=== PATIENT | female | born 1985 | race Two or more races ===

== ENCOUNTER 2020-02-16 21:28 | Emergency (ER) | payer MEDICAID, OTHER ==
[~2020-02-16] VITALS: Ht 162.6 cm; Wt 63.5 kg
[2020-02-16 22:33] LABS: Basophils # (auto) 0.1 10 ^3/uL (0-0.2); Basophils % (auto) 1.1 % (0.0-2.0); Eosinophils # (auto) 0.1 10 ^3/uL (0-0.8); Eosinophils % (auto) 1.3 % (0.0-7.0); Hematocrit 42.2 % (36.0-46.0); Hemoglobin 14.3 g/dL (12.2-16.2); Lymphocytes # (auto) 2.4 10 ^3/uL (0.4-5.4); Lymphocytes % (auto) 26.4 % (10.0-50.0); Mean Corpuscular Hemoglobin 31.7 pg (28.0-32.0); Mean Corpuscular Hgb Conc. 33.9 g/dL (32.0-36.0); Mean Corpuscular Volume 93.3 fL (80.0-100.0); Monocytes # (auto) 0.7 10 ^3/uL (0-1.3); Monocytes % (auto) 8.2 % (0.0-12.0); Neutrophils # (auto) 5.7 10 ^3/uL (1.6-8.6); Platelet Count (auto) 214 10^3/uL (140-450); Red Blood Cells 4.53 10^6/uL (4.0-5.20); Red Cell Distribution Width 12.7 % (11.8-14.3)
[2020-02-16 22:43] VITALS: BP 103/69
[2020-02-16 22:55] LABS: Albumin 4.1 g/dL (3.4-5.0); BUN/Creatinine Ratio 26.2; Calcium 8.7 mg/dL (8.5-10.1); Potassium 3.8 mmol/L (3.5-5.1)
[2020-02-16 22:58] LABS: Bilirubin, Total 0.9 mg/dL (0.2-1.0); Total Protein 7.6 g/dL (6.4-8.2)
[2020-02-16 23:11] LABS: Urine Bacteria FEW /hpf (None Seen); Urine Blood Negative /uL (Negative); Urine Mucus FEW (None Seen); Urine Specific Gravity 1.031 (1.001-1.035); Urine WBC 1 /hpf (0 - 5)
== END 2020-02-17 02:07 | disposition home or self-care (01) ==
LOC: ER 21:31
DX: O23.41 Unspecified infection of urinary tract in pregnancy, first trimester (principal); Z3A.01 Less than 8 weeks gestation of pregnancy
CPT/HCPCS: 36415; 76801; 76817; 80053; 81001; 84702; 85025

== ENCOUNTER 2020-08-18 13:14 | Observation (INO) | payer MEDICAID ==
[2020-08-18] MEDS ORDERED: PREN-96 PO (15:13)
== END 2020-08-18 15:25 | disposition home or self-care (01) ==
LOC: LDRP 13:14
PROVIDERS: ADMIT Obstetrics & Gynecology; ATTEND Obstetrics & Gynecology
DX: O24.419 Gestational diabetes mellitus in pregnancy, unspecified control (principal); Z3A.32 32 weeks gestation of pregnancy
CPT/HCPCS: 59025; 76818; 81002; 82962; G0378

== ENCOUNTER 2020-08-25 15:10 | Observation (INO) | payer MEDICAID ==
[~2020-08-25 15:10] MED LIST: PREN-96 PO
== END 2020-08-25 16:49 | disposition home or self-care (01) ==
LOC: LDRP 15:10
PROVIDERS: ADMIT Obstetrics & Gynecology; ATTEND Obstetrics & Gynecology
DX: O24.419 Gestational diabetes mellitus in pregnancy, unspecified control (principal); Z3A.33 33 weeks gestation of pregnancy
CPT/HCPCS: 59025; 81002; 82948; 82962; G0378

== ENCOUNTER 2020-09-01 15:03 | Observation (INO) | payer MEDICAID | END 2020-09-01 16:52 | disposition home or self-care (01) | LOC: LDRP 15:03 | PROVIDERS: ADMIT Obstetrics & Gynecology; ATTEND Obstetrics & Gynecology | DX: O24.410 Gestational diabetes mellitus in pregnancy, diet controlled (principal); Z3A.34 34 weeks gestation of pregnancy | CPT/HCPCS: 59025; 76818; 81002; 82948; 82962; G0378 ==

== ENCOUNTER 2020-09-08 11:08 | Observation (INO) | payer MEDICAID | END 2020-09-08 12:24 | disposition home or self-care (01) | LOC: LDRP 11:08 | PROVIDERS: ADMIT Obstetrics & Gynecology; ATTEND Obstetrics & Gynecology | DX: O24.419 Gestational diabetes mellitus in pregnancy, unspecified control (principal); Z3A.35 35 weeks gestation of pregnancy | CPT/HCPCS: 59025; 76818; 81002; 82948; 82962; G0378 ==

== ENCOUNTER 2020-09-09 17:00 | Observation (INO) | payer MEDICAID ==
[2020-09-09] MEDS: TERBUTALINE SULFATE 1 MG/ML 1ML VIAL SC SCH ×2 (18:11→20:21)
[2020-09-09] MEDS ORDERED: NIFEdipine 10 MG CAP PO ONE (19:00)
[2020-09-09] MEDS ORDERED: NIFEdipine 10 MG CAP ONE ×2 (19:00→19:01)
[2020-09-11] MEDS ORDERED: NIF10C GT (11:57)
== END 2020-09-09 21:07 | disposition home or self-care (01) ==
LOC: UNDOADMOB 17:00 → LDRP 17:00 → UNDODISOB 21:07
PROVIDERS: ADMIT Specialist; ATTEND Specialist
DX: O42.913 Preterm premature rupture of membranes, unspecified as to length of time between rupture and onset of labor, third trimester (principal); O62.9 Abnormality of forces of labor, unspecified; O26.893 Other specified pregnancy related conditions, third trimester; R11.10 Vomiting, unspecified; Z3A.35 35 weeks gestation of pregnancy; Z98.891 History of uterine scar from previous surgery; Z79.899 Other long term (current) drug therapy
CPT/HCPCS: 59025; 81002; 82948; 82962; 84112; 96372; G0378; J3105; Q0114

== ENCOUNTER 2020-09-16 09:06 | Observation (INO) | payer MEDICAID ==
[~2020-09-16 09:06] MED LIST changes: +NIF10C GT
[2020-09-16] MEDS ORDERED: NIF10C PO (10:34)
== END 2020-09-16 10:44 | disposition home or self-care (01) ==
LOC: LDRP 09:06
PROVIDERS: ADMIT Obstetrics & Gynecology; ATTEND Obstetrics & Gynecology
DX: O24.410 Gestational diabetes mellitus in pregnancy, diet controlled (principal); Z3A.36 36 weeks gestation of pregnancy
CPT/HCPCS: 59025; 76818; 81002; 82948; 82962; G0378

== ENCOUNTER 2020-09-23 11:26 | Observation (INO) | payer MEDICAID ==
[~2020-09-23 11:26] MED LIST changes: -NIF10C GT; +NIF10C PO
== END 2020-09-23 12:29 | disposition home or self-care (01) ==
LOC: LDRP 11:26
PROVIDERS: ADMIT Specialist; ATTEND Specialist
DX: O24.410 Gestational diabetes mellitus in pregnancy, diet controlled (principal); O34.219 Maternal care for unspecified type scar from previous cesarean delivery; O62.9 Abnormality of forces of labor, unspecified; Z3A.37 37 weeks gestation of pregnancy
CPT/HCPCS: 59025; 76818; 81002; 82948; 82962; G0378

== ENCOUNTER 2020-09-28 09:16 | Observation (INO) | payer MEDICAID ==
[~2020-09-28] VITALS: Ht 162.6 cm; Wt 72.6 kg
[~2020-09-28 09:16] MED LIST changes: -NIF10C PO
[2020-10-08] MEDS ORDERED: IBUP800T27 PO (09:34)
== END 2020-10-02 14:38 | disposition home or self-care (01) ==
LOC: LDRP 09:16 → UNDOADMOB 09:16 → LDRP 10-02 13:10
PROVIDERS: ADMIT Obstetrics & Gynecology; ATTEND Obstetrics & Gynecology
DX: O24.419 Gestational diabetes mellitus in pregnancy, unspecified control (principal); O34.219 Maternal care for unspecified type scar from previous cesarean delivery; Z3A.38 38 weeks gestation of pregnancy
CPT/HCPCS: 59025; 76818; 81002; 82962; G0378

== ENCOUNTER 2020-10-02 13:10 | Observation (INO) | payer MEDICAID | END 2020-10-02 14:38 | disposition home or self-care (01) | LOC: LDRP 13:10 | PROVIDERS: ADMIT Obstetrics & Gynecology; ATTEND Obstetrics & Gynecology | DX: O24.419 Gestational diabetes mellitus in pregnancy, unspecified control (principal); Z20.828 Contact with and (suspected) exposure to other viral communicable diseases; Z3A.38 38 weeks gestation of pregnancy | CPT/HCPCS: 59025; 76818; 81002; 82948; 82962; G0378; U0003 ==

== ENCOUNTER 2020-10-05 04:02 | Inpatient (IN) | payer MEDICAID ==
[2020-10-05] VITALS (19 sets, daily range): BP systolic 104–129; BP diastolic 57–74
[~2020-10-05] VITALS: Ht 162.6 cm; Wt 79.4 kg
[2020-10-05] MEDS ORDERED: LACTATED RINGER'S 1,000 ML IV ONE (04:15)
[2020-10-05] MEDS ORDERED: ceFAZolin 1GM/50ML 50 ML IV ONE (04:15)
[2020-10-05 04:46] LABS: Hematocrit 38.6 % (36.0-46.0); Hemoglobin 13.1 g/dL (12.2-16.2); Mean Corpuscular Hemoglobin 31.7 pg (28.0-32.0); Mean Corpuscular Hgb Conc. 33.8 g/dL (32.0-36.0); Mean Corpuscular Volume 93.6 fL (80.0-100.0); Platelet Count (auto) 197 10^3/uL (140-450); Red Blood Cells 4.13 10^6/uL (4.0-5.20); Red Cell Distribution Width 14.4 % (11.8-14.3); White Blood Cell 12.2 10^3/uL (4.4-10.8)
[2020-10-05 04:53] LABS: Urine Bacteria FEW /hpf (None Seen); Urine Blood Negative /uL (Negative); Urine Mucus FEW (None Seen); Urine Specific Gravity 1.029 (1.001-1.035); Urine WBC 2 /hpf (0 - 5)
[2020-10-05 04:54] LABS: Basophils % (manual) 0 (0.0-2.0); Blast Cells 0; Eosinophils % (manual) 0 (0-7); Metamyelocytes % 0; Promyelocytes % 0; Reactive Lymphocytes 0
[2020-10-05 05:01] LABS: INR 0.94 (0.9-1.15); Partial Thromboplastin Time 25.1 sec (23.0-31.2)
[2020-10-05 05:06] LABS: Potassium 3.7 mmol/L (3.5-5.1)
[2020-10-05 05:09] LABS: BUN/Creatinine Ratio 19.1; Bilirubin, Total 0.8 mg/dL (0.2-1.0); Total Protein 7.4 g/dL (6.4-8.2)
[2020-10-05 05:25] LABS: Band Neutrophils % (manual) 10; Lymphocytes % (manual) 20 (10.0-50.0); Monocytes % (manual) 3 (0-12); Myelocytes % 1
[2020-10-05] MEDS ORDERED: TETRACAINE 1% INJ 2 ML VIAL IJ ONE (07:10)
[2020-10-05] MEDS ORDERED: ONDANSETRON HCL 4 MG/2 ML VIAL IV PRN ×3 (07:45→09:15)
[2020-10-05] MEDS ORDERED: LACT. RINGERS/OXYTOCIN 20UNITS 1,000 ML IV ONE (07:45)
[2020-10-05] MEDS ORDERED: ceFAZolin 1GM/50ML 50 ML IV SCH (07:45)
[2020-10-05] MEDS ORDERED: KETOROLAC TROMETH 30 MG/ML 1ML VIAL IV PRN (09:15)
[2020-10-05] MEDS ORDERED: LABETALOL HCL 5 MG/ML 4ML SYRINGE IV PRN (09:15)
[2020-10-05] MEDS ORDERED: NALBUPHINE HCL 10 MG/1ml INJECTION SUBCUT ONE (09:15)
[2020-10-05] MEDS ORDERED: DexAMETHasone SOD PHOS 10MG/1ML VIAL INJ IV PRN (09:15)
[2020-10-05] MEDS ORDERED: NALOXONE HCL 0.4 MG/ML VIAL IV PRN (09:15)
[2020-10-05] MEDS ORDERED: HYDROmorphone HCL 2 MG/ML VL IV PRN (09:15)
[2020-10-05] MEDS ORDERED: ePHEDrine SULFATE 50 MG/ML AMP IV PRN (09:15)
[2020-10-05] MEDS ORDERED: MIDAZOLAM HCL 1MG/1ML-2 ML VIAL IV PRN (09:15)
[2020-10-05] MEDS: diphenhdrAMINE HCL 50 MG/1 ML VL IV PRN ×2 (12:01→18:34)
[2020-10-05] MEDS: LACTATED RINGER'S 1,000 ML IV SCH (12:02)
[2020-10-05] MEDS ORDERED: HYDR-4833 PO (12:34)
[2020-10-05] MEDS: ceFAZolin 1GM/50ML 50 ML IV SCH ×2 (15:20→23:05)
[2020-10-05 19:59] LABS: Basophils # (auto) 0.1 10 ^3/uL (0-0.2); Basophils % (auto) 0.9 % (0.0-2.0); Eosinophils # (auto) 0.1 10 ^3/uL (0-0.8); Eosinophils % (auto) 0.4 % (0.0-7.0); Hematocrit 35.1 % (36.0-46.0); Hemoglobin 12.1 g/dL (12.2-16.2); Lymphocytes # (auto) 0.8 10 ^3/uL (0.4-5.4); Lymphocytes % (auto) 7.2 % (10.0-50.0); Mean Corpuscular Hgb Conc. 34.5 g/dL (32.0-36.0); Monocytes # (auto) 0.7 10 ^3/uL (0-1.3); Monocytes % (auto) 6.6 % (0.0-12.0); Neutrophils # (auto) 9.5 10 ^3/uL (1.6-8.6); Neutrophils % (auto) 84.9 % (37.0-80.0); Nucleated Red Blood Cells % 0.1 %; Platelet Count (auto) 155 10^3/uL (140-450); Red Blood Cells 3.78 10^6/uL (4.0-5.20); White Blood Cell 11.2 10^3/uL (4.4-10.8)
[2020-10-05] MEDS: MORPHINE SULFATE 4 MG/ML SYR/VIAL IV PRN (21:06)
[2020-10-05] MEDS ORDERED: ACETAMINOPHEN IV 1000 MG/100ML (10MG/ML) IV ONE (23:15)
[2020-10-06] VITALS (12 sets, daily range): BP systolic 101–130; BP diastolic 60–78
[2020-10-06] MEDS: LACTATED RINGER'S 1,000 ML IV SCH (01:30)
[2020-10-06] MEDS: MORPHINE SULFATE 4 MG/ML SYR/VIAL IV PRN (03:43)
[2020-10-06] MEDS ORDERED: BISACODYL 10 MG RECT SUPP PR PRN (07:00)
[2020-10-06] MEDS ORDERED: HYDROcodone-ACET 5/325MG TAB PO PRN (07:00)
[2020-10-06 07:07] LABS: RPR Non Reactive (Non Reactive)
[2020-10-06] MEDS: ceFAZolin 1GM/50ML 50 ML IV SCH (07:16)
[2020-10-06 08:04] LABS: Basophils # (auto) 0.1 10 ^3/uL (0-0.2); Basophils % (auto) 0.7 % (0.0-2.0); Eosinophils # (auto) 0 10 ^3/uL (0-0.8); Eosinophils % (auto) 0.1 % (0.0-7.0); Hematocrit 36.2 % (36.0-46.0); Hemoglobin 12.6 g/dL (12.2-16.2); Lymphocytes # (auto) 0.3 10 ^3/uL (0.4-5.4); Lymphocytes % (auto) 3.1 % (10.0-50.0); Mean Corpuscular Hemoglobin 32.4 pg (28.0-32.0); Mean Corpuscular Hgb Conc. 34.8 g/dL (32.0-36.0); Mean Corpuscular Volume 93.2 fL (80.0-100.0); Monocytes # (auto) 0.5 10 ^3/uL (0-1.3); Monocytes % (auto) 4.8 % (0.0-12.0); Neutrophils # (auto) 9.7 10 ^3/uL (1.6-8.6); Neutrophils % (auto) 91.3 % (37.0-80.0); Nucleated Red Blood Cells % 0.1 %; Platelet Count (auto) 143 10^3/uL (140-450); Red Blood Cells 3.89 10^6/uL (4.0-5.20); Red Cell Distribution Width 14.4 % (11.8-14.3); White Blood Cell 10.6 10^3/uL (4.4-10.8)
[2020-10-06] MEDS: IBUPROFEN 800 MG TAB PO PRN ×2 (09:22→18:40)
[2020-10-06] MEDS: DOCUSATE CALCIUM 240 MG CAP PO SCH (10:00)
[2020-10-06] MEDS: DOCUSATE SOD 100 MG CAP PO SCH ×2 (10:00→22:02)
[2020-10-06] MEDS: SIMETHICONE 80 MG CHEWABLE TABLET PO SCH ×3 (14:36→22:02)
[2020-10-06] MEDS: HYDROcodone-ACET 5/325MG TAB PO PRN ×2 (16:16→22:03)
[2020-10-07 03:00] VITALS: BP 99/62
[2020-10-07] MEDS: IBUPROFEN 800 MG TAB PO PRN ×3 (04:40→22:14)
[2020-10-07] MEDS: SIMETHICONE 80 MG CHEWABLE TABLET PO SCH ×4 (06:49→22:13)
[2020-10-07 07:30] VITALS: BP 107/67
[2020-10-07] MEDS: HYDROcodone-ACET 5/325MG TAB PO PRN ×2 (08:32→19:46)
[2020-10-07] MEDS: DOCUSATE CALCIUM 240 MG CAP PO SCH (09:50)
[2020-10-07] MEDS: DOCUSATE SOD 100 MG CAP PO SCH ×2 (09:50→22:14)
[2020-10-07 11:30] VITALS: BP 92/62
[2020-10-07 15:30] VITALS: BP 104/73
[2020-10-07 19:29] VITALS: BP 109/71
[2020-10-07 23:00] VITALS: BP 119/73
[2020-10-08 02:44] VITALS: BP 107/62
[2020-10-08] MEDS: HYDROcodone-ACET 5/325MG TAB PO PRN (02:53)
[2020-10-08] MEDS: SIMETHICONE 80 MG CHEWABLE TABLET PO SCH (05:49)
[2020-10-08 07:30] VITALS: BP 106/67
[2020-10-08] MEDS: IBUPROFEN 800 MG TAB PO PRN (08:58)
[2020-10-08] MEDS ORDERED: DOCU-94 PO (09:33)
[2020-10-08] MEDS ORDERED: IBUP800T24 PO (09:34)
[2020-10-08] MEDS: DOCUSATE SOD 100 MG CAP PO SCH (09:55)
[2020-10-08] MEDS: DOCUSATE CALCIUM 240 MG CAP PO SCH (09:55)
[2020-10-08 10:30] VITALS: BP 123/77
== END 2020-10-08 11:10 | disposition home or self-care (01) | DRG 540 ==
LOC: LDRP 04:02
PROVIDERS: ADMIT Specialist; ATTEND Specialist
PROC: 10D00Z1 Extraction of Products of Conception, Low, Open Approach (ICD-10-PCS; principal; 2020-10-05 07:34)
DX: O24.429 Gestational diabetes mellitus in childbirth, unspecified control (principal); O99.214 Obesity complicating childbirth; E66.9 Obesity, unspecified; O69.81X0 Labor and delivery complicated by cord around neck, without compression, not applicable or unspecified; O34.211 Maternal care for low transverse scar from previous cesarean delivery; Z37.0 Single live birth; Z3A.38 38 weeks gestation of pregnancy
CPT/HCPCS: 36415; 59025; 80053; 81001; 81002; 82948; 85007; 85025; 85027; 85610; 85730; 86592; 86850; 86900; 86901; 94762; 96360; 96361; 96374; 96375; G0378; J0131; J0690; J2250; J2590

== ENCOUNTER 2021-06-05 21:45 | Emergency (ER) | payer MEDICAID ==
[~2021-06-05] VITALS: Ht 160 cm; Wt 68.0 kg
[~2021-06-05 21:45] MED LIST changes: +DOCU-94 PO; +HYDR-4833 PO; +IBUP800T27 PO
[2021-06-05] MEDS ORDERED: HALOPERIDOL LACTATE 5 MG/ML INJ VIAL ONE (21:59)
[2021-06-05] MEDS ORDERED: LORazepam 2MG/ML-1ML VIAL IM ONE (22:00)
[2021-06-05] MEDS ORDERED: HALOPERIDOL LACTATE 5 MG/ML INJ VIAL IM ONE (22:00)
[2021-06-06 07:03] VITALS: BP 102/60
[2021-06-06 08:37] LABS: Basophils # (auto) 0 10 ^3/uL (0-0.2); Basophils % (auto) 0.3 % (0.0-2.0); Eosinophils # (auto) 0 10 ^3/uL (0-0.8); Eosinophils % (auto) 0.4 % (0.0-7.0); Hematocrit 40.4 % (36.0-46.0); Hemoglobin 13.7 g/dL (12.2-16.2); Lymphocytes # (auto) 0.6 10 ^3/uL (0.4-5.4); Lymphocytes % (auto) 10.8 % (10.0-50.0); Mean Corpuscular Hemoglobin 30.6 pg (28.0-32.0); Mean Corpuscular Hgb Conc. 33.9 g/dL (32.0-36.0); Mean Corpuscular Volume 90.4 fL (80.0-100.0); Monocytes # (auto) 0.6 10 ^3/uL (0-1.3); Monocytes % (auto) 11.3 % (0.0-12.0); Neutrophils % (auto) 77.2 % (37.0-80.0); Red Blood Cells 4.47 10^6/uL (4.0-5.20); Red Cell Distribution Width 13.4 % (11.8-14.3); White Blood Cell 5.2 10^3/uL (4.4-10.8)
[2021-06-06 08:56] LABS: Albumin 3.4 g/dL (3.4-5.0); Calcium 8.5 mg/dL (8.5-10.1); Magnesium 2.1 mg/dL (1.6-2.6); Potassium 3.8 mmol/L (3.5-5.1)
[2021-06-06 08:59] LABS: Bilirubin, Total 0.5 mg/dL (0.2-1.0); Total Protein 7.1 g/dL (6.4-8.2)
== END 2021-06-06 12:47 | disposition left against medical advice (07) ==
LOC: ER 21:48
DX: F41.9 Anxiety disorder, unspecified (principal); Z79.1 Long term (current) use of non-steroidal anti-inflammatories (NSAID); Z79.899 Other long term (current) drug therapy
CPT/HCPCS: 36415; 80053; 83690; 83735; 84443; 85025; 93005; 96372; 99285; J1630

== ENCOUNTER 2022-01-08 21:01 | Emergency (ER) | payer MEDICAID ==
[~2022-01-08] VITALS: Ht 162.6 cm; Wt 68.9 kg
[2022-01-08 21:56] VITALS: BP 105/70
[2022-01-09] MEDS ORDERED: NITR-87 PO ×3 (14:00→14:48)
[2022-01-10] MEDS ORDERED: ONDA-144 PO (22:05)
[2022-01-10] MEDS ORDERED: TRAM-297 PO (22:05)
[2022-01-10] MEDS ORDERED: PANT40TA2 PO (22:05)
== END 2022-01-09 02:11 | disposition left against medical advice (07) ==
LOC: ER 21:01
DX: R11.2 Nausea with vomiting, unspecified (principal); R19.7 Diarrhea, unspecified; Z53.21 Procedure and treatment not carried out due to patient leaving prior to being seen by health care provider
CPT/HCPCS: 93005

== ENCOUNTER 2022-01-09 11:28 | Emergency (ER) | payer MEDICAID ==
[~2022-01-09] VITALS: Ht 162.6 cm; Wt 68.9 kg
[2022-01-09 11:42] VITALS: BP 106/72
[2022-01-09 12:31] LABS: Urine Bacteria NONE SEEN /hpf (None Seen); Urine Blood 1+ /uL (Negative); Urine Mucus FEW (None Seen); Urine Specific Gravity 1.022 (1.001-1.035); Urine WBC 17 /hpf (0 - 5)
[2022-01-09] MEDS ORDERED: NITROFURANTOIN 100 mg CAP PO ONE (13:00)
[2022-01-09] MEDS ORDERED: ONDANSETRON ODT 4 MG TAB PO ONE (13:00)
[2022-01-09] MEDS ORDERED: NITR-87 PO ×3 (14:00→14:48)
[2022-01-10] MEDS ORDERED: TRAM-297 PO (22:05)
[2022-01-10] MEDS ORDERED: ONDA-144 PO (22:05)
[2022-01-10] MEDS ORDERED: PANT40TA2 PO (22:05)
== END 2022-01-09 15:00 | disposition home or self-care (01) ==
LOC: ER 11:28
DX: N39.0 Urinary tract infection, site not specified (principal); Z32.02 Encounter for pregnancy test, result negative
CPT/HCPCS: 81001; 81025; 99283; Q0162

== ENCOUNTER 2022-01-10 18:04 | Emergency (ER) | payer MEDICAID ==
[~2022-01-10] VITALS: Ht 162.6 cm; Wt 68.9 kg
[~2022-01-10 18:04] MED LIST changes: +NITR-87 PO
[2022-01-10 20:40] LABS: Basophils # (auto) 0 10 ^3/uL (0-0.2); Basophils % (auto) 0.1 % (0.0-2.0); Eosinophils # (auto) 0 10 ^3/uL (0-0.8); Eosinophils % (auto) 0.5 % (0.0-7.0); Hematocrit 46.5 % (36.0-46.0); Hemoglobin 15.9 g/dL (12.2-16.2); Lymphocytes # (auto) 0.4 10 ^3/uL (0.4-5.4); Lymphocytes % (auto) 4.5 % (10.0-50.0); Mean Corpuscular Hemoglobin 30.8 pg (28.0-32.0); Mean Corpuscular Hgb Conc. 34.2 g/dL (32.0-36.0); Mean Corpuscular Volume 89.9 fL (80.0-100.0); Monocytes # (auto) 0.7 10 ^3/uL (0-1.3); Monocytes % (auto) 7.7 % (0.0-12.0); Neutrophils # (auto) 7.7 10 ^3/uL (1.6-8.6); Neutrophils % (auto) 87.2 % (37.0-80.0); Nucleated Red Blood Cells % 0.1 %; Red Blood Cells 5.17 10^6/uL (4.0-5.20); Red Cell Distribution Width 13.7 % (11.8-14.3); White Blood Cell 8.8 10^3/uL (4.4-10.8)
[2022-01-10] MEDS ORDERED: MORPHINE SULFATE 4 MG/ML SYR/VIAL IV ONE (20:45)
[2022-01-10] MEDS ORDERED: ONDANSETRON HCL 4 MG/2 ML VIAL IV ONE (20:45)
[2022-01-10] MEDS ORDERED: SODIUM CHLORIDE 0.9% 500 ML IVB ONE (20:45)
[2022-01-10] MEDS ORDERED: PANTOPRAZOLE 40 MG/10 ML VIAL INJ IV ONE (20:45)
[2022-01-10 20:55] LABS: Albumin 4.1 g/dL (3.4-5.0); Calcium 8.8 mg/dL (8.5-10.1); Potassium 3.3 mmol/L (3.5-5.1)
[2022-01-10 21:00] LABS: BUN/Creatinine Ratio 21.7; Bilirubin, Total 1.2 mg/dL (0.2-1.0); Total Protein 8.2 g/dL (6.4-8.2)
[2022-01-10 21:42] LABS: Amylase 51 U/L (25-115); Lipase 115 U/L (73-393)
[2022-01-10] MEDS ORDERED: ONDA-144 PO (22:05)
[2022-01-10] MEDS ORDERED: PANT40TA2 PO (22:05)
[2022-01-10] MEDS ORDERED: TRAM-297 PO (22:05)
[2022-01-11 00:20] VITALS: BP 114/62
== END 2022-01-11 00:41 | disposition home or self-care (01) ==
LOC: ER 18:04
DX: F12.188 Cannabis abuse with other cannabis-induced disorder (principal); E87.6 Hypokalemia; F12.10 Cannabis abuse, uncomplicated; Z90.49 Acquired absence of other specified parts of digestive tract
CPT/HCPCS: 36415; 76705; 80053; 82150; 83690; 85025; 96361; 96374; 96375; 99284; C9113; J2270; J2405; J7040

== ENCOUNTER 2024-07-27 11:54 | Emergency (ER) | payer MEDICAID ==
[~2024-07-27] VITALS: Ht 162.6 cm; Wt 77.7 kg
[~2024-07-27 11:54] MED LIST changes: +IBUP-1456 PO; -IBUP800T27 PO; +ONDA-144 PO; +PANT40TA2 PO; +TRAM-297 PO
[2024-07-27 12:10] VITALS: PULSE 77; RESP 14; O2SAT 96
[2024-07-27] MEDS: SODIUM CHLORIDE 0.9% 500 ML IVB ONE (12:53)
[2024-07-27] MEDS: METOCLOPRAMIDE HCL 5MG/ml INJ 2ml VIAL IV ONE (12:54)
[2024-07-27] MEDS: KETOROLAC TROMETH 30 MG/ML 1ML VIAL IV ONE (12:54)
[2024-07-27 13:00] LABS: Basophils # (auto) 0 10 ^3/uL (0-0.2); Basophils % (auto) 0.6 % (0.0-2.0); Eosinophils # (auto) 0.1 10 ^3/uL (0-0.8); Eosinophils % (auto) 1.8 % (0.0-7.0); Hematocrit 41.2 % (36.0-46.0); Hemoglobin 14.2 g/dL (12.2-16.2); Lymphocytes # (auto) 1.6 10 ^3/uL (0.4-5.4); Lymphocytes % (auto) 23.7 % (10.0-50.0); Mean Corpuscular Hemoglobin 31.2 pg (28.0-32.0); Mean Corpuscular Hgb Conc. 34.4 g/dL (32.0-36.0); Mean Corpuscular Volume 90.7 fL (80.0-100.0); Monocytes # (auto) 0.3 10 ^3/uL (0-1.3); Monocytes % (auto) 4.4 % (0.0-12.0); Neutrophils # (auto) 4.8 10 ^3/uL (1.6-8.6); Neutrophils % (auto) 69.5 % (37.0-80.0); Nucleated Red Blood Cells % 0.1 %; Platelet Count (auto) 242 10^3/uL (140-450); Red Blood Cells 4.55 10^6/uL (4.0-5.20); Red Cell Distribution Width 12.8 % (11.8-14.3); White Blood Cell 6.9 10^3/uL (4.4-10.8)
[2024-07-27 13:01] LABS: Chloride 105 mmol/L (98-107); Potassium 3.7 mmol/L (3.5-5.1); Sodium 138 mmol/L (136-145)
[2024-07-27 13:02] LABS: Anion Gap 8 (5-15); Carbon Dioxide 25 mmol/L (20-31)
[2024-07-27 13:03] LABS: Calcium 9.5 mg/dL (8.7-10.4)
--- NOTE | 2024-07-27 13:05 | ED.PDOC ---
GI ASSESSMENT HPI Comments 39y F who presents to the ED for chief complaint of abdominal pain. Pt states she has been having RUQ abdominal pain for the past 3 days. Pt states the pain is burning, radiating to the back, rating the pain 7/10, with no associated exacerbating or relieving factors. Pt has associated nausea but denies vomiting, diarrhea, fever, dysuria, hematuria, headache, chills, cough, headache or dizziness. Pt otherwise has stable vitals in the ED. Pt has noted history of gallstones with prior cholecystectomy and fatty liver disease. Pt denies any other symptoms at this time. Chief Complaint: Abdominal Pain Time Seen by MD: 13:01 Primary Care Provider: Billy Harris Notes: Allergies Allergies: Coded Allergies: NO KNOWN ALLERGIES (Unverified , 02/16/20) Home Meds Active Scripts Metoclopramide Hcl (Reglan) 10 Mg Tab, 10 MG PO BID for 10 Days, #20 TAB Prov:DEEPTI PRICE MD 07/27/24 Aluminum Hydroxide-Mag Carb (Gaviscon Extra Strength) 1 Chw Chw, 1 CHW PO Q.i.d. for 10 Days, #40 TAB.CHEW Prov:DEETPI PRICE MD 07/27/24 Omeprazole (Gnp Omeprazole) 20 Mg Tab, 1 TAB PO BID for 10 Days, #20 TAB 1 Refill Prov:DEEPTI PRICE MD 07/27/24 Tramadol Hcl (Ultram) 50 Mg Tab, 1 TAB PO Q6HR, #30 TAB Prov:ABDIAZIZ ALBERT MD 01/10/22 Ondansetron (Zofran) 4 Mg Tab, 1 TAB PO Q6HR, #20 TAB Prov:ABDIAZIZ ALBERT MD 01/10/22 Pantoprazole Sodium Sesquihydr (Protonix) 40 Mg Tab, 40 MG PO DAILY, #30 TAB Prov:ABDIAZIZ ALBERT MD 01/10/22 Nitrofurantoin Monohydrate Mac (Macrobid) 100 Mg Cap, 100 MG PO BID, #14 CAP Prov:LIONEL GUTIERREZ MD 01/09/22 Nitrofurantoin Monohydrate Mac (Macrobid) 100 Mg Cap, 100 MG PO BID for 7 Days, #14 CAP Prov:LIONEL GUTIERREZ MD 4/17/22 Nitrofurantoin Monohydrate Mac (Macrobid) 100 Mg Cap, 100 MG PO BID for 7 Days, #14 CAP Prov:LIONEL GUTIERREZ MD 01/09/22 Hydrocodone-Acetaminophen ([place] 5/325MG) 1 Tab Tb, 1 TAB PO Q6HP PRN for 7 Days, #28 TAB Prov:HOLDEN ARREDONDO DO 10/05/20 Reported Medications Ibuprofen (Ibuprofen) 800 Mg Tab, 800 MG PO Q8HP PRN for PAIN SCALE 1 THRU 6, MG 10/08/20 Docusate Sodium (Colace) 100 Mg Cap, 100 MG PO BID, #90 CAP 10/08/20 Vit W/ Ferrous Fumara ( One Daily) Daily Tab, 1 TAB PO DAILY for , #90 TAB 3 Refills 08/18/20 Information Source: Patient Mode of Arrival: Ambulatory Brought in by: self Past Medical History PAST MEDICAL HISTORY: Anxiety Surgical History: Cholecystectomy, 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 Hx Family History Family History: No family hx of Cancer, Family hx of DM, Family hx of heart alexx Family History (Other): Thyroid disease Social History Smoker: Non-Smoker Alcohol: Denies ETOH Use Drugs: Marijuana Lives In: Home Constitutional: denies: chills, diaphoresis, fatigue, fever, malaise, sweats, weakness, others EENTM: denies: blurred vision, double vision, ear bleeding, ear discharge, ear drainage, ear pain, ear ringing, eye pain, eye redness, hearing loss, mouth pain, mouth swelling, nasal discharge, nose bleeding, nose congestion, nose pain, photophobia, tearing, throat pain, throat swelling, voice changes, others Respiratory: denies: cough, hemoptysis, orthopnea, SOB at rest, shortness of breath, SOB with excertion, stridor, wheezing, others Cardiovascular: denies: chest pain, dizzy spells, diaphoresis, Dyspnea on exe rtion, edema, irregular heart beat, left arm pain, lightheadedness, palpitations, PND, syncope, others Gastrointestinal: reports: abdominal pain, nausea; denies: abdomen distended, blood streaked bowels, constipated, diarrhea, dysphagia, difficulty swallowing, hematemesis, melena, poor appetite, poor fluid intake, rectal bleeding, rectal pain, vomiting, others Genitourinary: denies: abnormal vagina bleeding, burning, dyspareunia, dysuria, flank pain, frequency, hematuria, incontinence, pain, , vagina discharge, urgency, others Neurological: denies: dizziness, fainting, headache, left sided numbness, left sided weakness, numbness, paresthesia, pre-existing deficit, right sided numbness, right sided weakness, seizure, speech problems, tingling, tremors, weakness, others Musculoskeletal: denies: back pain, gout, joint pain, joint swelling, muscle pain, muscle stiffness, neck pain, others Integumetry: denies: bruises, change in color, change in hair/nails, dryness, laceration, lesions, lumps, rash, wounds, others Allergic/Immunocompromised: denies: Difficulty Healing, Frequent Infections, Hives, Itching, others Hematologic/Lymphatic: denies: anemia, blood clots, easy bleeding, easy bruisin g, swollen glands, others Endocrine: denies: excessive hunger, excessive sweating, excessive thirst, excessive urination, flushing, intolerance to cold, intolerance to heat, unexplained weight gain, unexplained weight loss, others Psychiatric: denies: anxiety, bipolar disorder, depression, hopeless, panic disorder, schizophrenia, sleepless, suicidal, others All Other Systems: Reviewed and Negative Physical Exam General Appearance: Mild Distress HEENT: Normal ENT Inspection, Pharynx Normal, TMs Normal Neck: Full Range of Motion, Non-Tender, Normal, Normal Inspection Respiratory: Chest Non-Tender, Lungs Clear, No Accessory Muscle Use, No Respiratory Distress, Normal Breath Sounds Cardiovascular: No Edema, No JVD, No Murmur, No Gallop, Normal Peripheral Pulses, Regular Rate/Rhythm Breast Exam: Deferred Gastrointestinal: Epigastric, No Organomegaly, No Pulsatile Mass, Normal Bowel Sounds, Soft, Tenderness Genitalia: Deferred Pelvic: Deferred Rectal: Deferred Extremities: No calf tenderness, Normal capillary refill, Normal inspection, Normal range of motion, Non-tender, No pedal edema Neurologic: Alert, 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 Was a procedure done?: No GI differential Dx Differential Diagnosis: Constipation, Gastritis/PUD, Gastroenteritis, Pancreatitis, UTI, Dehydration, Electrolyte Imbalance, Food Poisoning, Bacterial, Viral X-Ray, Labs, Meds, VS Vital Signs Date Time Temp Pulse Resp B/P (MAP) Pulse Ox O2 Delivery O2 Flow Rate FiO2 07/27/24 14:21 98.0 81 16 122/70 (87) 98 98.0 07/27/24 12:10 77 14 96 Room Air* 0 21 07/27/24 12:10 74 14 116/76 (89) 96 07/27/24 12:06 98.6 75 18 108/74 (85) 98 Lab Test 07/27/24 13:44 07/27/24 12:15 07/27/24 11:17 Range/Units Sodium Level 140 138 136-145 mmol/L Potassium Level 3.9 3.7 3.5-5.1 mmol/L Chloride Level 108 H 105 98-107 mmol/L Carbon Dioxide Level 28 25 20-31 mmol/L Anion Gap 4 L 8 5-15 Blood Urea Nitrogen 20 17 9-23 mg/dL Creatinine 0.89 0.85 0.550-1.02 mg/dL Glomerular Filtration Rate Calc 86 90 >90 mL/min BUN/Creatinine Ratio 22.5 H 20.0 10.0-20.0 Serum Glucose 114 H 153 H 74-106 mg/dL Calcium Level 9.1 9.5 8.7-10.4 mg/dL Total Bilirubin 1.0 0.2-1.0 mg/dL Aspartate Amino Transferase (AST) 38 13-40 U/L Alanine Aminotransferase (ALT) 57 H 7-40 U/L Alkaline Phosphatase 67 46-116 U/L Total Protein 6.4 5.7-8.2 g/dL Albumin 4.4 3.2-4.8 g/dL Lipase 43 12-53 U/L White Blood Count 6.9 4.4-10.8 10^3/uL Red Blood Count 4.55 4.0-5.20 10^6/uL Hemoglobin 14.2 12.2-16.2 g/dL Hematocrit 41.2 36.0-46.0 % Mean Corpuscular Volume 90.7 80.0-100.0 fL Mean Corpuscular Hemoglobin 31.2 28.0-32.0 pg Mean Corpuscular Hemoglobin Concent 34.4 32.0-36.0 g/dL Red Cell Distribution Width 12.8 11.8-14.3 % Platelet Count 242 140-450 10^3/uL Mean Platelet Volume 8.4 6.9-10.8 fL Neutrophils (%) (Auto) 69.5 37.0-80.0 % Lymphocytes (%) (Auto) 23.7 10.0-50.0 % Monocytes (%) (Auto) 4.4 0.0-12.0 % Eosinophils (%) (Auto) 1.8 0.0-7.0 % Basophils (%) (Auto) 0.6 0.0-2.0 % Neutrophils # (Auto) 4.8 1.6-8.6 10 ^3/uL Lymphocytes # (Auto) 1.6 0.4-5.4 10 ^3/uL Monocytes # (Auto) 0.3 0-1.3 10 ^3/uL Eosinophils # (Auto) 0.1 0-0.8 10 ^3/uL Basophils # (Auto) 0 0-0.2 10 ^3/uL Nucleated Red Blood Cells 0.1 % Magnesium Level 1.9 1.6-2.6 mg/dL Beta HCG, Quantitative 0.4 L 1.5-4.2 mIU/mL Urine Color Light-yellow Yellow Urine Clarity Clear Clear Urine pH 5.5 5.0-9.0 Urine Specific [place] 1.027 1.001-1.035 Urine Protein Negative Negative Urine Ketones Negative Negative Urine Blood 1+ H Negative /uL Urine Nitrite Negative Negative Urine Bilirubin Negative Negative Urine Urobilinogen Normal Negative mg/dL Urine Leukocyte Esterase Negative Negative /uL Urine RBC 4 0 - 4 /hpf Urine WBC 3 0 - 5 /hpf Urine Squamous Epithelial Cells Few <5 /hpf Urine Bacteria None seen None Seen /hpf Urine Glucose Normal Normal mg/dL Current Medications Medications (Trade) Dose Ordered Sig/[place] Route Start Time Stop Time Status Last Admin Metoclopramide HCl (Reglan Injection) 10 mg ONCE ONCE IV 07/27/24 13:00 07/27/24 13:01 DC 07/27/24 12:54 Sodium Chloride 500 ml @ 500 mls/hr Q1H ONCE IVB 07/27/24 13:00 07/27/24 13:59 DC 07/27/24 12:53 Ketorolac Tromethamine (Toradol Injection) 30 mg ONCE ONCE IV 07/27/24 13:00 07/27/24 13:01 DC 07/27/24 12:54 X-Ray, Labs, Meds, VS Comment Course in the emergency department eventful. Patient came in with abdominal pain and epigastric pain for the past three days CBC is normal CMP negative Urine shows 1+ blood negative Magnesium 1.9 Lipase 43 Patient has been hydrated and medicated she will be discharged home to follow up with her PCP Time of 1ST Reevaluation: 13:30 Reevaluation 1ST: Unchanged Patient Education/Counseling: Diagnosis, Treatment Family Education/Counseling: No Family Present Departure 1 Departure Time of Disposition: 15:27 Impression: Primary Impression: Epigastric pain determined by examination Additional Impression: Marijuana user Ruled Out: Acute pancreatitis, Urinary tract infection Disposition: 01 HOME / SELF CARE / HOMELESS Condition: Fair Additional Instructions: Push fluids and follow up with your PCP e-Prescriptions Metoclopramide Hcl (Reglan) 10 Mg Tab 10 MG PO BID for 10 Days, #20 TAB Prov: DEEPTI PRICE MD 07/27/24 Aluminum Hydroxide-Mag Carb (Gaviscon Extra Strength) 1 Chw Chw 1 CHW PO Q.i.d. for 10 Days, #40 TAB.CHEW Prov: DEEPTI PRICE MD 07/27/24 Omeprazole (Gnp Omeprazole) 20 Mg Tab 1 TAB PO BID for 10 Days, #20 TAB 1 Refill Prov: DEEPTI PRICE MD 07/27/24 Discharged With: Self Critical Care Note Critical Care Time?: No Stability Stability form required: No Heart Score Heart Score: Heart Score Response (Comments) Value History N/A 0 EKG N/A 0 Age <45 0 Risk Factors No known risk factors 0 Troponin N/A 0 Total 0 I personally scribed for DEEPTI PRICE MD ([email or web address]) on 07/27/24 at 13:05. Electronically submitted by Ashley LYLE). DEEPTI PRICE MD Jul 27, 2024 13:05
[2024-07-27 13:07] LABS: Glucose 153 mg/dL (74-106)
[2024-07-27 13:08] LABS: Magnesium 1.9 mg/dL (1.6-2.6)
[2024-07-27 13:18] LABS: Urine Bacteria None Seen /hpf (None Seen)
[2024-07-27 13:38] LABS: Urine Blood 1+ /uL (Negative); Urine Clarity Clear (Clear); Urine Color Light-Yellow (Yellow); Urine Protein, UAD Negative (Negative); Urine Specific Gravity 1.027 (1.001-1.035); Urine Urobilinogen Normal (Negative); Urine WBC 3 /hpf (0 - 5); Urine pH 5.5 (5.0-9.0)
[2024-07-27 13:44] LABS: Blood Urea Nitrogen 17 mg/dL (9-23)
[2024-07-27 14:19] LABS: Alanine Aminotransferase 57 U/L (7-40); Albumin 4.4 g/dL (3.2-4.8); Alkaline Phosphatase 67 U/L (46-116); Anion Gap 4 (5-15); Aspartate Aminotransferase 38 U/L (13-40); BUN/Creatinine Ratio 22.5 (10.0-20.0); Blood Urea Nitrogen 20 mg/dL (9-23); Calcium 9.1 mg/dL (8.7-10.4); Carbon Dioxide 28 mmol/L (20-31); Chloride 108 mmol/L (98-107); Glucose 114 mg/dL (74-106); Lipase 43 U/L (12-53); Potassium 3.9 mmol/L (3.5-5.1); Sodium 140 mmol/L (136-145); Total Protein 6.4 g/dL (5.7-8.2)
[2024-07-27 14:21] VITALS: BP 122/70; PULSE 81; RESP 16; TEMP 98; O2SAT 98
[2024-07-27] MEDS ORDERED: OMEP20TA PO (15:30)
[2024-07-27] MEDS ORDERED: METO-281 PO (15:30)
[2024-07-27] MEDS ORDERED: ALUMCHW6 PO (15:30)
== END 2024-07-27 15:44 | disposition home or self-care (01) ==
LOC: ER 11:54
DX: F12.90 Cannabis use, unspecified, uncomplicated (principal); R10.2 Pelvic and perineal pain; R10.13 Epigastric pain; F41.9 Anxiety disorder, unspecified; Z90.49 Acquired absence of other specified parts of digestive tract; Z98.890 Other specified postprocedural states; Z79.899 Other long term (current) drug therapy
CPT/HCPCS: 36415; 80048; 80053; 81001; 83690; 83735; 84702; 85025; 96361; 96374; 96375; 99284; J1885; J2765; J7040

== ENCOUNTER → 2024-11-25 | Outpatient (CLI) | payer MEDICAID ==
[~2024-11-25] MED LIST changes: +ALUMCHW6 PO; +METO-281 PO; +OMEP20TA PO
[2024-11-25 10:18] LABS: Basophils # (auto) 0 10 ^3/uL (0-0.2); Basophils % (auto) 0.5 % (0.0-2.0); Eosinophils # (auto) 0.2 10 ^3/uL (0-0.8); Hematocrit 41.2 % (36.0-46.0); Hemoglobin 13.9 g/dL (12.2-16.2); Lymphocytes # (auto) 1.4 10 ^3/uL (0.4-5.4); Lymphocytes % (auto) 18.1 % (10.0-50.0); Mean Corpuscular Hemoglobin 30.7 pg (28.0-32.0); Mean Corpuscular Hgb Conc. 33.8 g/dL (32.0-36.0); Mean Corpuscular Volume 90.8 fL (80.0-100.0); Monocytes # (auto) 0.5 10 ^3/uL (0-1.3); Monocytes % (auto) 6.5 % (0.0-12.0); Neutrophils # (auto) 5.8 10 ^3/uL (1.6-8.6); Neutrophils % (auto) 72.9 % (37.0-80.0); Platelet Count (auto) 263 10^3/uL (140-450); Red Blood Cells 4.53 10^6/uL (4.0-5.20); White Blood Cell 7.9 10^3/uL (4.4-10.8)
[2024-11-25 10:44] LABS: Urine Bacteria FEW /hpf (None Seen); Urine Blood TRACE /uL (Negative); Urine Clarity Clear (Clear); Urine Color Light-Yellow (Yellow); Urine Hyaline Cast FEW /lpf (0 - 2); Urine Protein, UAD Negative (Negative); Urine Specific Gravity 1.019 (1.001-1.035); Urine Squamous Epithelial Cell FEW /hpf (<5); Urine Urobilinogen Normal (Negative); Urine WBC < 1 /HPF (0-5)
[2024-11-25 11:06] LABS: Alanine Aminotransferase 24 U/L (7-40); Albumin 4.8 g/dL (3.2-4.8); Alkaline Phosphatase 64 U/L (46-116); Anion Gap 9 (5-15); Aspartate Aminotransferase 18 U/L (13-40); BUN/Creatinine Ratio 13.1 (10.0-20.0); Blood Urea Nitrogen 11 mg/dL (9-23); Carbon Dioxide 24 mmol/L (20-31); Chloride 104 mmol/L (98-107); Glucose 97 mg/dL (74-106); HDL Cholesterol 45 mg/dL (40-59); Potassium 4.3 mmol/L (3.5-5.1); Sodium 137 mmol/L (136-145); Total Protein 7.5 g/dL (5.7-8.2); Triglycerides 140 mg/dL (< 150)
[2024-11-25 11:07] LABS: Bilirubin, Total 0.9 mg/dL (0.2-1.0)
[2024-11-25 11:12] LABS: Cholesterol 224 mg/dL (< 200); LDL Cholesterol 174 mg/dL (< 100)
== END | disposition home or self-care (01) ==
LOC: LAB 09:27
PROVIDERS: ATTEND Nurse Practitioner Family
DX: I10 Essential (primary) hypertension (principal); R73.9 Hyperglycemia, unspecified; E66.9 Obesity, unspecified; Z00.01 Encounter for general adult medical examination with abnormal findings
CPT/HCPCS: 36415; 80053; 80061; 81001; 81025; 82306; 83036; 84443; 85025